=== PATIENT | female | born 2000 | race Caucasian/White ===

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

== ENCOUNTER 2023-02-18 15:34 | Emergency (ER) | payer OTHER ==
[~2023-02-18] VITALS: Ht 167.6 cm; Wt 181.4 kg
[2023-02-18] MEDS ORDERED: NAPROSYN500 MG PO (17:50)
[2023-02-18] MEDS ORDERED: CYCLOBENZAPRINE10 MG PO (17:50)
== END 2023-02-18 18:01 | disposition home or self-care (01) ==
LOC: ED 15:34
DX: S43.402A Unspecified sprain of left shoulder joint, initial encounter (principal); S20.211A Contusion of right front wall of thorax, initial encounter; S50.811A Abrasion of right forearm, initial encounter; V49.9XXA Car occupant (driver) (passenger) injured in unspecified traffic accident, initial encounter; Y93.89 Activity, other specified; Y92.410 Unspecified street and highway as the place of occurrence of the external cause; Y99.8 Other external cause status

== ENCOUNTER 2024-03-14 05:08 | Emergency (ER) | payer SELFPAY ==
[~2024-03-14] VITALS: Ht 167.6 cm; Wt 181.4 kg
[~2024-03-14 05:08] MED LIST: CYCLOBENZAPRINE10 MG PO; NAPROSYN500 MG PO
[2024-03-14] MEDS ORDERED: PENICILLIN V POTASSIUM 500 MG TAB PO ONE (05:20)
[2024-03-14] MEDS ORDERED: Acetaminophen/Oxycodone 5 MG/325 MG TABLET PO ONE (05:20)
[2024-03-14] MEDS ORDERED: Ondansetron Hydrochloride 4 MG TAB SL ONE (05:20)
[2024-03-14] MEDS ORDERED: PENICILLIN VK500 MG PO (05:23)
== END 2024-03-14 05:33 | disposition home or self-care (01) ==
LOC: ED 05:08
DX: K02.9 Dental caries, unspecified (principal); K08.89 Other specified disorders of teeth and supporting structures